=== PATIENT | male | born 1970 | race Caucasian/White ===

== ENCOUNTER 2022-04-10 10:51 | Emergency (ER) | payer OTHER ==
[2022-04-10 10:57] VITALS: BP 123/79; PULSE 84; RESP 16; TEMP 97.6; BMI 24.4
== END 2022-04-10 12:30 | disposition home or self-care (01) ==
LOC: JERFT 10:51
DX: M67.834 Other specified disorders of tendon, left wrist (principal)
CPT/HCPCS: 73110-TC-LT-FY; 73130-TC-LT-FY; 99283-25